=== PATIENT | female | born 1955 | race African-American/Black ===

== ENCOUNTER → 2018-09-04 | Outpatient (CLI) | payer MEDICARE, OTHER | LOC: COL.RAD 10:10 | DX: I65.22 Occlusion and stenosis of left carotid artery (principal); E04.1 Nontoxic single thyroid nodule | CPT/HCPCS: Q9967 ==

== ENCOUNTER 2018-09-09 07:12 | Day surgery (SDC) | payer MEDICARE, OTHER | END 2018-09-09 15:45 | disposition home or self-care (01) | LOC: COL.CAR 07:12 | DX: I25.10 Atherosclerotic heart disease of native coronary artery without angina pectoris (principal); I34.0 Nonrheumatic mitral (valve) insufficiency; Z86.73 Personal history of transient ischemic attack (TIA), and cerebral infarction without residual deficits; F17.210 Nicotine dependence, cigarettes, uncomplicated; I10 Essential (primary) hypertension; E78.5 Hyperlipidemia, unspecified; G47.33 Obstructive sleep apnea (adult) (pediatric); F51.04 Psychophysiologic insomnia; Z82.49 Family history of ischemic heart disease and other diseases of the circulatory system; Z90.49 Acquired absence of other specified parts of digestive tract; Z90.710 Acquired absence of both cervix and uterus; Z79.899 Other long term (current) drug therapy; Z79.82 Long term (current) use of aspirin ==